=== PATIENT | male | born 1975 | race Caucasian/White ===

== ENCOUNTER 2017-09-25 17:17 | Outpatient (CLI) | payer OTHER, MEDICAID ==
--- NOTE | 2017-09-26 09:03 | XRAY Report ---
TWO VIEW CHEST: 09/25/2017 CLINICAL INDICATION: Pneumonia. FINDINGS: Frontal and lateral views of the chest demonstrate a normal cardiac silhouette. There is patchy lingular and left lower lobe airspace disease present. No effusion or pneumothorax is seen. IMPRESSION: PATCHY LEFT-SIDED INFILTRATES. TD: 09/26/2017 08:55
== END 2017-09-25 17:18 | disposition home or self-care (01) ==
LOC: DI 17:17
PROVIDERS: ATTEND Physician Assistant Medical
DX: J18.9 Pneumonia, unspecified organism (principal)
CPT/HCPCS: 71046

== ENCOUNTER 2017-10-08 17:18 | Outpatient (CLI) | payer MEDICAID ==
--- NOTE | 2017-10-09 08:00 | XRAY Report ---
EXAM: CHEST RADIOGRAPHY EXAM DATE: 10/08/2017 06:05 PM. CLINICAL HISTORY: PNEUMONIA. COMPARISON: 09/25/2017. TECHNIQUE: 2 views. FINDINGS: Lungs/Pleura: Decreasing infiltrates left lower lobe. Elevated right hemidiaphragm.. No pleural effus ion. No pneumothorax. Normal volumes. Mediastinum: Heart and mediastinal contours are unremarkable. Other: None. IMPRESSION: Decreasing left lower lobe infiltrates [facility] Referring Provider Line: [phone] SITE ID: [id number]
== END 2017-10-08 17:19 | disposition home or self-care (01) ==
LOC: LAB 17:18 → DI 17:19
PROVIDERS: ATTEND Physician Assistant Medical
DX: J18.9 Pneumonia, unspecified organism (principal)
CPT/HCPCS: 71046

== ENCOUNTER 2019-06-18 02:59 | Emergency (ER) | payer MEDICAID, OTHER ==
--- NOTE | 2019-06-18 03:05 | ED Physician Documentation ---
History of Present Illness - Stated complaint Stated Complaint: ABD PX - History obtained from History obtained from: Patient (the patient is a 43 Y/O M who p/w a 2 day hx of flank and abd pain that feels similar to his previous kidney stone for which he received ESWL by urology. He reports that he is unable to urinate and he feels the need to and now is c/o of severe suprapubic pain and previously had some flank pain.) Review of Systems Constitutional: reports: Reviewed and negative Eyes: reports: Reviewed and negative Ears: reports: Reviewed and negative Nose: reports: Reviewed and negative Throat: reports: Reviewed and negative Cardiac: reports: Reviewed and negative Respiratory: reports: Reviewed and negative GI: reports: Reviewed and negative : reports: Hesitancy, Unable to Void, Other (flank pain) Skin: reports: Reviewed and negative Musculoskeletal: reports: Reviewed and negative Neurologic: reports: Reviewed and negative Psychiatric: reports: Reviewed and negative Endocrine: reports: Reviewed and negative Immunocompromised: reports: Reviewed and negative PD PAST MEDICAL HISTORY - Present Medications Home Medications: Ambulatory Orders Medication Instructions Recorded Confirmed Hydrocodone/Acetaminophen [[place] 1 each PO Q6HR PRN #10 tablet 06/18/19 5-325 Tablet] Ondansetron Odt [Zofran] 4 mg TL Q6H PRN #10 tablet 06/18/19 Tamsulosin HCl [Flomax] 0.4 mg PO DAILY #7 capsule 06/18/19 - Allergies Allergies/Adverse Reactions: Allergies Allergy/AdvReac Type Severity Reaction Status Date / Time Penicillins Allergy Unknown Verified 06/18/19 03:20 PD ED PE NORMAL - Vitals Vital signs reviewed: Yes - General General: Alert and oriented X 3, No acute distress, Well developed/nourished - HEENT HEENT: Atraumatic, PERRL, Pharynx benign - Neck Neck: Supple, no meningeal sign - Cardiac Cardiac: RRR, No murmur - Respiratory Respiratory: No respiratory distress, Clear bilaterally - Abdomen Abdomen: Normal bowel sounds, Soft, Non distended, Other (tenderness over right flank on exam and suprapubic region) - Derm Derm: Warm and dry - Extremities Extremities: No deformity - Neuro Neuro: crayon painter 2-12 intact, No motor deficit, No sensory deficit, Normal speech - Psych Psych: Normal mood, Normal affect Results - Vitals Vitals: Vital Signs - 24 hr 06/18/19 06/18/19 03:03 05:41 Temperature 36.7 C Heart Rate 74 88 Respiratory 18 16 Rate Blood Pressure 126/97 H O2 Saturation 98 100 - Labs Labs: Laboratory Tests 06/18/19 06/18/19 06/18/19 03:15 03:15 03:15 WBC 7.8 RBC 4.79 Hgb 15.1 Hct 44.6 MCV 93.1 MCH 31.5 H MCHC 33.9 RDW 12.3 Plt Count 278 MPV 8.8 Neut # (Auto) 4.4 Lymph # (Auto) 2.7 Yell # (Auto) 0.6 Eos # (Auto) 0.0 Baso # (Auto) 0.0 Absolute Nucleated RBC 0.00 Nucleated RBC % 0.0 PT 11.1 INR 1.0 APTT 34.4 H Sodium 138 Potassium 4.2 Chloride 103 Carbon Dioxide 24 Anion Gap 11.0 BUN 19 Creatinine 0.9 Estimated GFR (MDRD) 92 Glucose 125 H Calcium 9.4 Total Bilirubin 0.6 AST 18 ALT 19 Alkaline Phosphatase 49 Total Creatine Kinase 73 Total Protein 7.4 Albumin 4.1 Globulin 3.3 Albumin/Globulin Ratio 1.2 Lipase 29 Urine Color Urine Clarity Urine pH Ur Specific [place] Urine Protein Urine Glucose (UA) Urine Ketones Urine Occult Blood Urine Nitrite Urine Bilirubin Urine Urobilinogen Ur Leukocyte Esterase Urine RBC Urine WBC Ur Squamous Epith Cells Urine Bacteria Ur Microscopic Review Urine Culture Comments 06/18/19 04:45 WBC RBC Hgb Hct MCV MCH MCHC RDW Plt Count MPV Neut # (Auto) Lymph # (Auto) Yell # (Auto) Eos # (Auto) Baso # (Auto) Absolute Nucleated RBC Nucleated RBC % PT INR APTT Sodium Potassium Chloride Carbon Dioxide Anion Gap BUN Creatinine Estimated GFR (MDRD) Glucose Calcium Total Bilirubin AST ALT Alkaline Phosphatase Total Creatine Kinase Total Protein Albumin Globulin Albumin/Globulin Ratio Lipase Urine Color YELLOW Urine Clarity CLEAR Urine pH 5.5 Ur Specific [place] >=1.030 H Urine Protein NEGATIVE Urine Glucose (UA) NEGATIVE Urine Ketones NEGATIVE Urine Occult Blood MODERATE H Urine Nitrite NEGATIVE Urine Bilirubin NEGATIVE Urine Urobilinogen 0.2 (NORMAL) Ur Leukocyte Esterase NEGATIVE Urine RBC 6-10 H Urine WBC 0-3 Ur Squamous Epith Cells NONE SEEN Urine Bacteria None Seen Ur Microscopic Review INDICATED Urine Culture Comments NOT INDICATED PD MEDICAL DECISION MAKING - ED course Complexity details: re-evaluated patient (patient able to urinate, pain under control, no fever, no elevated wbc. will dc home with close f/u w urology.), other (hx and pe are consistent w nephrolithiasis) - Consults Consults: Consulted (name) (spoke with dr. soraida simmons urologist who agreed to see as outpatient and recommends dc home.) Departure - Departure Disposition: Home, Self Care Clinical Impression: Kidney stone on left side Condition: Good Instructions: Kidney Stones Follow-Up: Soraida Simmons MD [Physician No Access] - 06/18/19 Prescriptions: Hydrocodone/Acetaminophen [[place] 5-325 Tablet] 1 each PO Q6HR PRN #10 tablet PRN Reason: Pain Ondansetron Odt [Zofran] 4 mg TL Q6H PRN #10 tablet PRN Reason: Nausea / Vomiting Tamsulosin HCl [Flomax] 0.4 mg PO DAILY #7 capsule Comments: call dr soraida simmons to schedule follow up at [phone] to schedule follow up. Discharge Date/Time: 06/18/19 05:41
[2019-06-18 03:08] VITALS: BP 126/97
[2019-06-18] MEDS ORDERED: KETOROLAC 30 MG/ML VIAL IVP STA (03:13)
[2019-06-18] MEDS ORDERED: HYDROmorphone 2 MG/ML VIAL IVP STA (03:13)
[2019-06-18] MEDS ORDERED: SODIUM CHLORIDE 0.9% 1,000 ML IV ONE ×2 (03:13→04:13)
[2019-06-18] MEDS ORDERED: ONDANSETRON 4 MG/2 ML VIAL IVP STA (03:13)
[2019-06-18 03:26] LABS: BASOPHILS % (AUTO) 0.4 %; EOSINOPHILS % (AUTO) 0.5 %; HGB - HEMOGLOBIN 15.1 g/dL (14.0-18.0); LYMPHOCYTES # (AUTO) 2.7 10^3/uL (1.5-3.5); LYMPHOCYTES % (AUTO) 34.1 %; MEAN CORPUSCULAR HEMOGLOBIN 31.5 pg (27.0-31.0); MEAN CORPUSCULAR HGB CONC 33.9 g/dL (32.0-36.0); MEAN CORPUSCULAR VOLUME 93.1 fL (80.0-94.0); MEAN PLATELET VOLUME 8.8 fL (7.4-11.4); MONOCYTES # (AUTO) 0.6 10^3/uL (0.0-1.0); MONOCYTES % (AUTO) 8.1 %; NEUTROPHILS # (AUTO) 4.4 10^3/uL (1.5-6.6); NEUTROPHILS % (AUTO) 56.5 %; PLT - PLATELET COUNT 278 10^3/uL (130-450); RED BLOOD COUNT 4.79 10^6/uL (4.70-6.10); RED CELL DISTRIBUTION WIDTH 12.3 % (12.0-15.0); WHITE BLOOD COUNT 7.8 x10^3/uL (4.8-10.8)
[2019-06-18 03:33] LABS: PT - PROTHROMBIN TIME 11.1 secs (9.9-12.6)
[2019-06-18 03:38] LABS: ALBUMIN 4.1 g/dL (3.2-5.5); ALBUMIN/GLOBULIN RATIO 1.2 (1.0-2.2); BILIRUBIN,TOTAL 0.6 mg/dL (0.2-1.0); CALCIUM 9.4 mg/dL (8.5-10.3); CREATININE 0.9 mg/dL (0.6-1.2); TOTAL PROTEIN 7.4 g/dL (6.7-8.2)
[2019-06-18 03:40] LABS: PARTIAL THROMBOPLASTIN TIME 34.4 secs (24.9-33.3)
--- NOTE | 2019-06-18 04:15 | CT Report ---
Reason: kidney stone Procedure Date: 06/18/2019 Accession Number: [id number] / [id number] Procedure: CT - Abdomen/Pelvis WO CPT Code: Final Report FULL RESULT: EXAM: CT ABDOMEN AND PELVIS (CT KUB) EXAM DATE: 06/18/2019 03:56 AM. CLINICAL HISTORY: Kidney stone. COMPARISONS: None. TECHNIQUE: Routine axial helical CT imaging was performed through the abdomen and pelvis without IV contrast. Reconstructions: Coronal and sagittal. In accordance with CT protocol optimization, one or more of the following dose reduction techniques were utilized for this exam: automated exposure control, adjustment of mA and/or KV based on patient size, or use of iterative reconstructive technique. FINDINGS: Lung Bases: Unremarkable. Right Kidney/Ureter: Right nephrolithiasis, the largest calculus measuring 4 mm. No hydronephrosis or ureterolithiasis. Left Kidney/Ureter: Left hydronephrosis and perinephric stranding. 7 x 5 mm calculus in the proximal left ureter, at the level of the L2 vertebral body. 1 mm calculus in the left lower pole collecting system. Other Solid Organs: Noncontrast images of the solid organs are grossly unremarkable. Gallbladder/Bile Ducts: Unremarkable. Peritoneal Cavity: Colonic diverticulosis, without CT evidence of diverticulitis. No obstruction or perforation. Normal appendix. Pelvic Organs: No bladder stones or wall thickening. Noncontrast images of the visualized pelvic organs are unremarkable. Vasculature: Unremarkable. Other: None. IMPRESSION: 7 x 5 mm calculus in the proximal left ureter, producing left hydronephrosis. Nephrolithiasis. [facility]
[2019-06-18 04:55] LABS: BILIRUBIN,URINE NEGATIVE (NEGATIVE); GLUCOSE, URINE (UA) NEGATIVE (NEGATIVE); KETONES,URINE (UA) NEGATIVE (NEGATIVE); LEUKOCYTE ESTERASE, URINE NEGATIVE (NEGATIVE); NITRITE,URINE NEGATIVE (NEGATIVE); OCCULT BLOOD,URINE MODERATE (NEGATIVE); PH,URINE 5.5 PH (5.0-7.5); PROTEIN,URINE NEGATIVE (NEGATIVE); UROBILINOGEN,URINE 0.2 (NORMAL) E.U./dL (NORMAL)
[2019-06-18 04:56] LABS: CLARITY,URINE CLEAR (CLEAR)
[2019-06-18 05:00] LABS: BACTERIA,URINE None Seen /HPF (None Seen); SQUAMOUS EPITHELIAL CELL,UR NONE SEEN (<= Few)
== END 2019-06-18 05:41 | disposition home or self-care (01) ==
LOC: ED 02:59
DX: N13.2 Hydronephrosis with renal and ureteral calculous obstruction (principal)
CPT/HCPCS: 36415; 74176; 80053; 81001; 82550; 83690; 85025; 85610; 85730; 96361; 96374; 96375; 99283; 99284; J1170; 81003; 87086

== ENCOUNTER 2019-07-03 17:30 | Outpatient (CLI) | payer OTHER ==
--- NOTE | 2019-07-04 09:57 | XRAY Report ---
Reason: URETERAL CALCULUS,RENAL CALCULUS Procedure Date: 07/03/2019 Accession Number: [id number] / [id number] Procedure: XR - Abdomen 1 View X-Ray CPT Code: 63514 Final Report FULL RESULT: EXAM: ABDOMEN RADIOGRAPHY EXAM DATE: 07/03/2019 07:35 PM. CLINICAL HISTORY: Ureteral calculus, renal calculus. COMPARISON: ABDOMEN/PELVIS W/O 06/18/2019 3:53 AM. TECHNIQUE: 1 view. FINDINGS: There is an oblong 4 mm radiopaque calculus at the mid pole the right kidney, correlating to a nephrolith seen on comparison CT. The left renal shadow is partially obscured by overlying bowel gas and stool. No radiopaque calculi detected at the left kidney or the proximal left ureter. On current view of the pelvis, there is an oblong 7 mm subtle calcific structure just medial to a round phlebolith. This may represent forward passage of the left nephrolith on comparison CT or be within bowel. No additional urinary collecting system calculi identified. IMPRESSION: Right nephrolith is visible on the current study and is stable in position. Previously seen proximal left ureteral calculus may have progressed into the lower pelvis near the UVJ on the current study. [facility]
== END 2019-07-03 17:31 | disposition home or self-care (01) ==
LOC: DI 17:30
PROVIDERS: ATTEND Urology
DX: N20.2 Calculus of kidney with calculus of ureter (principal)
CPT/HCPCS: 74018

== ENCOUNTER 2019-07-18 09:36 | Outpatient (CLI) | payer OTHER ==
--- NOTE | 2019-07-18 14:07 | XRAY Report ---
Reason: URETERAL CALCULUS Procedure Date: 07/18/2019 Accession Number: [id number] / [id number] Procedure: XRN - Abdomen 1 View X-Ray CPT Code: 44858 Final Report FULL RESULT: EXAM: ABDOMEN RADIOGRAPHY EXAM DATE: 07/18/2019 10:01 AM. CLINICAL HISTORY: Ureteral calculus. COMPARISON: ABDOMEN 1 VIEW 07/03/2019 6:08 PM ABDOMEN/PELVIS W/O 06/18/2019 3:53 AM. TECHNIQUE: 1 view. FINDINGS: Bowel Gas Pattern: Within normal limits. No dilated loops. Other: The previously demonstrated right renal calculus is now not definitely visualized. Again demonstrated are 4 calcifications within the left pelvis, without significant change from the radiograph on 07/03/2019. The 3 smaller calculi correspond well in size and location to phleboliths demonstrated on the CT exam. A 7-8 mm calculus is most consistent with distal progression of the calculus previously demonstrated at the left UPJ on the CT exam. IMPRESSION: 7-8 mm left pelvic calculus is most consistent with distal ureteral calculus and is without significant change from 07/03/2019. [facility]
== END 2019-07-18 09:37 | disposition home or self-care (01) ==
LOC: DI.N 09:36
PROVIDERS: ATTEND Urology
DX: N20.1 Calculus of ureter (principal)
CPT/HCPCS: 74018

== ENCOUNTER 2022-03-30 11:46 | Outpatient (CLI) | payer OTHER ==
--- NOTE | 2022-03-30 17:20 | XRAY Report ---
PROCEDURE: Toe(s) LT INDICATIONS: CONTUSION OF LEFT LESSER TOE WITHOUT DAMAGE TONAIL TECHNIQUE: 3 views of the fifth toe(s) acquired. COMPARISON: None FINDINGS: Bones: Oblique intra-articular fracture noted on the base of the fifth distal phalanx without displac ement. Normal bone mineralization. The osseous structures unremarkable Soft tissues: No suspicious soft tissue densities. IMPRESSION: Oblique intra-articular fracture, base of the fifth distal phalanx Reviewed by: Markos Long MD on 03/30/2022 4:19 PM [place] Approved by: Markos Long MD on 03/30/2022 4:19 PM [place] Station ID: [id number]
== END 2022-03-30 11:47 | disposition home or self-care (01) ==
LOC: DI 11:46
PROVIDERS: ATTEND Family Medicine
DX: S90.122A Contusion of left lesser toe(s) without damage to nail, initial encounter (principal); S92.535A Nondisplaced fracture of distal phalanx of left lesser toe(s), initial encounter for closed fracture
CPT/HCPCS: 73660

== ENCOUNTER 2023-04-11 16:19 | Emergency (ER) | payer OTHER ==
[2023-04-11] MEDS ORDERED: KETOROLAC 30 MG/ML VIAL IVP STA (17:28)
[2023-04-11] MEDS ORDERED: ONDANSETRON 4 MG/2 ML VIAL IVP STA (17:28)
--- NOTE | 2023-04-11 17:31 | ED Physician Documentation ---
History of Present Illness - Stated complaint Stated Complaint: /KIDNEY PX - Chief complaint Chief Complaint: Abd Pain - Additonal information Additional information: 47-year-old male presents emergency department for evaluation of acute left lower quadrant abdominal pain. States that this is reminiscent of previous ureter stones. He has required urinary stenting and lithotripsy in the past but not since 2018. He has had no fevers. Some nausea no vomiting. No history of previous colonoscopy but does endorse constipation. No melena or hematochezia. Appears very uncomfortable in the room guarding his abdomen. Review of Systems Constitutional: denies: Fever Cardiac: reports: Reviewed and negative Respiratory: reports: Reviewed and negative GI: reports: Abdominal Pain, Nausea. denies: Vomiting : denies: Dysuria, Frequency Skin: reports: Reviewed and negative Musculoskeletal: reports: Reviewed and negative PD PAST MEDICAL HISTORY - Past Medical History Past Medical History: Yes Cardiovascular: None Respiratory: None Neuro: None Endocrine/Autoimmune: None GI: None : Kidney stones HEENT: None Psych: None Musculoskeletal: None Derm: None - Past Surgical History Past Surgical History: Yes - Present Medications Home Medications: Ambulatory Orders Medication Instructions Recorded Confirmed Tamsulosin HCl [Flomax] 0.4 mg PO DAILY #7 capsule 06/18/19 Tamsulosin HCl [Flomax] 0.4 mg PO DAILY #30 cap 04/11/23 oxyCODONE [Roxicodone] 5 mg PO TID PRN #15 tablet 04/11/23 - Allergies Allergies/Adverse Reactions: Allergies Allergy/AdvReac Type Severity Reaction Status Date / Time Penicillins Allergy Unknown Verified 04/11/23 16:26 - Social History Does the pt smoke?: No Smoking Status: Never smoker Does the pt drink ETOH?: No Does the pt have substance abuse?: No - Immunizations Immunizations are current?: Yes - POLST Patient has POLST: No PD ED PE NORMAL - General General: Alert and oriented X 3. No: No acute distress (Uncomfortable in pain and guarding his abdomen) - HEENT HEENT: Atraumatic - Cardiac Cardiac: RRR, No murmur - Respiratory Respiratory: No respiratory distress, Clear bilaterally - Abdomen Abdomen: Normal bowel sounds, Soft. No: Non tender (Focal tenderness on the left lower quadrant without CVA tenderness. Some guarding.) - Back Back: No CVA TTP - Derm Derm: Normal color, Warm and dry - Extremities Extremities: No deformity - Neuro Neuro: Alert and oriented X 3 Eye Opening: Spontaneous Motor: Obeys Commands Verbal: Oriented GCS Score: 15 Results - Vitals Vitals: Vital Signs - 24 hr 04/11/23 04/11/23 04/11/23 16:26 16:59 19:10 Temperature 36.5 C Heart Rate 80 69 70 Respiratory 20 20 17 Rate Blood Pressure 134/94 H 190/72 H 125/85 H O2 Saturation 95 98 98 Oxygen O2 Source Room air - Labs Labs: Laboratory Tests 04/11/23 04/11/23 04/11/23 16:40 16:40 17:32 WBC 10.4 RBC 5.00 Hgb 15.4 Hct 46.0 MCV 92.0 MCH 30.8 MCHC 33.5 RDW 12.7 Plt Count 263 MPV 9.4 Neut # (Auto) 8.6 H Lymph # (Auto) 1.2 L [place] # (Auto) 0.6 Eos # (Auto) 0.0 Baso # (Auto) 0.0 Absolute Nucleated RBC 0.00 Nucleated RBC % 0.0 Sodium 134 L Potassium 4.2 Chloride 101 Carbon Dioxide 26 Anion Gap 7.0 BUN 12 Creatinine 1.0 Estimated GFR (MDRD) 80 L Glucose 92 Calcium 9.9 Total Bilirubin 0.7 AST 18 ALT 18 Alkaline Phosphatase 55 Total Protein 7.3 Albumin 4.8 Globulin 2.5 Albumin/Globulin Ratio 1.9 Lipase 12 Urine Color YELLOW Urine Clarity CLEAR Urine pH 6.0 Ur Specific [place] 1.025 Urine Protein NEGATIVE Urine Glucose (UA) NEGATIVE Urine Ketones >=80 H Urine Occult Blood SMALL H Urine Nitrite NEGATIVE Urine Bilirubin NEGATIVE Urine Urobilinogen 0.2 (NORMAL) Ur Leukocyte Esterase NEGATIVE Urine RBC 6-10 H Urine WBC 0-3 Ur Squamous Epith Cells NONE SEEN Urine Bacteria None Seen Ur Microscopic Review INDICATED Urine Culture Comments NOT INDICATED - Rads (name of study) CT abd Relevant Findings:: Final report received (Obstructing 7 mm stone in the distal left ureter resulting in moderate hydronephrosis, hydroureter delayed left sided nephrogram and perinephric fat stranding. Diverticulosis without diverticulitis) PD Medical Decision Making - ED course Complexity details: reviewed results, re-evaluated patient, d/w patient, d/w advertising sales consultant (Matt) ED course: Absolutely 47-year-old male presents emergency department for evaluation of acute onset left lower abdominal pelvic pain that is reminiscent of previous ureter colic he has had in the past requiring lithotripsy and stenting. Here in the emergency department he presented guarding his left lower abdomen. Some nausea no vomiting. His vital signs were without hypotension or tachycardia. No fevers. CBC electrolytes and urinalysis interpreted by myself showed no acute worrisome abnormalities. Urine shows no signs of infection though there was a small amount of blood noted. CT of the abdomen did show a 7 mm obstructing stone in the distal left ureter with associated hydronephrosis, hydroureter and perinephric fat stranding. In the emergency department the patient was given a single dose of Toradol with good relief of his pain. He did request a dose of oxycodone prior to discharge. I briefly discussed this case with Dr. Brian Gutierrez with urology. Patient is stable for outpatient follow-up. He will be started on Flomax. The usual emergent return precautions were discussed for worsening symptoms. Departure - Departure Disposition: 01 Home, Self Care Clinical Impression: Left ureteral calculus, Hydroureter on left Hydronephrosis Qualifiers: Hydronephrosis type: with ureteral calculous obstruction Qualified Code(s): N13.2 - Hydronephrosis with renal and ureteral calculous obstruction Condition: Stable Instructions: ED Stone Renal W Colic Follow-Up: Brian Gutierrez MD [Provider Admit Priv/Credential] - Carla Beaulieu PA-C [Primary Care Provider] - Prescriptions: Tamsulosin HCl [Flomax] 0.4 mg PO DAILY #30 cap oxyCODONE [Roxicodone] 5 mg PO TID PRN #15 tablet PRN Reason: Pain Comments: You do have a 7 mm stone in your distal left ureter. This is obstructing and causing some swelling of the ureter and kidney behind it. We have given you a first dose of Flomax here in the emergency department you should begin taking it every day until advised to stop by your urologist. This should help you pass the stone. Use the urine strainer when urinating if you do have any stones please save them for further testing. In general for pain I would recommend that you take 600 mg of ibuprofen with food 3 times a day or alternate with 500 mg of Tylenol also 3 times a day. For more severe pain a limited amount of oxycodone has been sent to [facility] in [place]. Use this sparingly, it is addictive, you develop tolerance quite quickly and it will cause constipation. If you go more than 24 hours without a bowel movement please take MiraLAX. Please follow closely with your PCP Carla Beaulieu. You will need a referral to urology. Dr. Brian Gutierrez is seeing patients here at the hospital and should be able to help you manage this. Return to the ER for worsening pain, fevers, uncontrolled vomiting or any other new or worrisome symptoms.. Forms: PCP List
[2023-04-11 17:45] LABS: BILIRUBIN,URINE NEGATIVE (NEGATIVE); GLUCOSE, URINE (UA) NEGATIVE (NEGATIVE); KETONES,URINE (UA) >=80 mg/dL (NEGATIVE); LEUKOCYTE ESTERASE, URINE NEGATIVE (NEGATIVE); NITRITE,URINE NEGATIVE (NEGATIVE); OCCULT BLOOD,URINE SMALL (NEGATIVE); PROTEIN,URINE NEGATIVE (NEGATIVE); UROBILINOGEN,URINE 0.2 (NORMAL) E.U./dL (NORMAL)
[2023-04-11 17:46] LABS: CLARITY,URINE CLEAR (CLEAR)
[2023-04-11 17:54] LABS: BACTERIA,URINE None Seen /HPF (None Seen); SQUAMOUS EPITHELIAL CELL,UR NONE SEEN (<= Few); WBC,URINE 0-3 /HPF (0-3)
[2023-04-11 18:20] LABS: BASOPHILS % (AUTO) 0.3 %; HGB - HEMOGLOBIN 15.4 g/dL (14.0-18.0); LYMPHOCYTES # (AUTO) 1.2 10^3/uL (1.5-3.5); LYMPHOCYTES % (AUTO) 11.3 %; MEAN CORPUSCULAR HEMOGLOBIN 30.8 pg (27.0-31.0); MEAN CORPUSCULAR HGB CONC 33.5 g/dL (32.0-36.0); MEAN PLATELET VOLUME 9.4 fL (7.4-11.4); MONOCYTES # (AUTO) 0.6 10^3/uL (0.0-1.0); MONOCYTES % (AUTO) 5.5 %; NEUTROPHILS # (AUTO) 8.6 10^3/uL (1.5-6.6); NEUTROPHILS % (AUTO) 82.7 %; PLT - PLATELET COUNT 263 10^3/uL (130-450); RED CELL DISTRIBUTION WIDTH 12.7 % (12.0-15.0); WHITE BLOOD COUNT 10.4 x10^3/uL (4.8-10.8)
[2023-04-11 18:29] LABS: ALBUMIN 4.8 g/dL (3.2-5.5); ALBUMIN/GLOBULIN RATIO 1.9 (1.0-2.2); BILIRUBIN,TOTAL 0.7 mg/dL (0.2-1.0); CALCIUM 9.9 mg/dL (8.5-10.3); POTASSIUM 4.2 mmol/L (3.5-4.5); TOTAL PROTEIN 7.3 g/dL (6.4-8.9)
[2023-04-11] MEDS ORDERED: iohexoL-300 100 ML VIAL IVP ONE (18:49)
--- NOTE | 2023-04-11 19:09 | CT Report ---
PROCEDURE: ABDOMEN/PELVIS W INDICATIONS: LLQ pain; ? obstructing stone vs divertiv CONTRAST: 100mL Omni 300 TECHNIQUE: After the administration of intravenous contrast, 5 mm thick sections acquired from the diaphragms to the symphysis. 5 mm thick coronal and sagittal reformats were acquired. For radiation dose reducti on, the following was used: automated exposure control, adjustment of mA and/or kV according to shelbi ent size. COMPARISON: CT 06/18/2019 FINDINGS: Image quality: Excellent. Lung bases and heart: Stable 2 mm solid nodule in the right lower lobe compared with 2019, statistica lly benign.. Liver: Subcentimeter hypoattenuating lesion in segment 7, too small to characterize by CT. Gallbladder and biliary tree: No radiopaque stones or wall thickening. No biliary dilation. Spleen: No splenomegaly. Pancreas: No pancreatic ductal dilation. Adrenals: No adrenal nodule. Kidneys and ureters: Obstructing 7 mm stone in the distal left ureter (561 Hounsfield unit). This res ults in moderate upstream hydronephrosis and hydroureter, delayed left-sided nephrogram and perinephr ic fat stranding. Small burden of bilateral, punctate nephrolithiasis. Bowel and peritoneum: No bowel distension. No pathologic free fluid. Diverticulosis without evidence of diverticulitis. Normal appendix. Lymph nodes: No central or retroperitoneal adenopathy. Vessels: No infrarenal aortic aneurysm. PELVIS Reproductive organs: Unremarkable. Bladder: No abnormal wall thickening, accounting for underdistension. Pelvic lymph nodes: No pelvic adenopathy by size criteria. Bones: No aggressive osseous abnormality. Other: No significant ventral or inguinal hernia. IMPRESSION: Obstructing 7 mm stone in the distal left ureter, resulting in moderate upstream hydronephrosis, hydr oureter, delayed left-sided nephrogram and perinephric fat stranding. Colonic diverticulosis without evidence of diverticulitis. Reviewed by: Mark Sadler on 04/11/2023 7:08 PM PST Approved by: Mark Sadler on 04/11/2023 7:08 PM PST Station ID: [id number]
[2023-04-11] MEDS ORDERED: TAMSULOSIN 0.4 MG CAPSULE PO STA (19:13)
[2023-04-11] MEDS ORDERED: oxyCODONE 5 MG TABLET PO STA (19:26)
[2023-04-11 20:46] VITALS: BP 103/83; O2SAT 100
== END 2023-04-11 20:44 | disposition home or self-care (01) ==
LOC: ED 16:19
DX: N13.2 Hydronephrosis with renal and ureteral calculous obstruction (principal)
CPT/HCPCS: 36415; 74177; 80053; 81001; 83690; 85025; 96374; 96375; 99284; A9270; Q9967; 81003; 87086

== ENCOUNTER 2023-04-19 11:30 | Outpatient (CLI) | payer OTHER ==
--- NOTE | 2023-04-19 19:56 | XRAY Report ---
PROCEDURE: Abdomen 1 View (KUB) INDICATIONS: NEPHROLITHIASIS TECHNIQUE: Single view the abdomen was obtained COMPARISON: None. FINDINGS: Both renal shadows are appreciated. No radiographic evidence of nephrolithiasis. Underlying osseous s tructures unremarkable. IMPRESSION: No radiographic evidence of nephrolithiasis Reviewed by: Markos Long MD on 04/19/2023 6:54 PM AKST Approved by: Markos Long MD on 04/19/2023 6:54 PM AKST Station ID: [id number]
== END 2023-04-19 23:59 | disposition home or self-care (01) ==
LOC: DI.WOS 11:30
PROVIDERS: ATTEND Urology
DX: N20.0 Calculus of kidney (principal)

== ENCOUNTER 2023-04-30 10:58 | Day surgery (SDC) | payer OTHER ==
[~2023-04-30 10:58] MED LIST: ceFAZolin 2 GM VIAL ONE
[2023-04-30] MEDS ORDERED: LACTATED RINGERS 1,000 ML IV ONE ×2 (11:15→13:25)
--- NOTE | 2023-04-30 11:50 | ANESTHESIA ---
Pre-Anesthesia VS, & Labs - Diagnosis L kidney stone - Procedure L laser lithotripsy, stent placement Vital Signs: Temp Pulse Resp BP Pulse Ox O2 Flow Rate 36.2 C L 83 12 123/85 H 97 04/30/23 11:16 04/30/23 11:16 04/30/23 11:16 04/30/23 11:16 04/30/23 11:16 Height: 6 ft Weight (kg): 121 kg Body Mass Index: 36.1 BMI Classification: Obese - NPO >8 hours - Lab Results Lab results reviewed: Yes Home Medications and Allergies Allergies/Adverse Reactions: Allergies Allergy/AdvReac Type Severity Reaction Status Date / Time Penicillins Allergy Hives Verified 04/30/23 11:20 Anes History & Medical History - Anesthetic History Anesthesia Complications: reports: No previous complications Family history of Anesthesia Complications: Denies Family history of Malignant Hyperthermia: Denies - Medical History Cardiovascular: reports: None Pulmonary: reports: None Gastrointestinal: reports: None Urinary: reports: Kidney stones Neuro: reports: None Musculoskeletal: reports: None Endocrine/Autoimmune: reports: None Blood Disorders: reports: None Skin: reports: None Smoking Status: Never smoker Psychosocial: reports: Alcohol (rare) History of Cancer?: No - Surgical History Urologic: reports: Kidney stents, Ureterolithotomy (stones) Exam General: Alert, Oriented x3 Mouth Openin Fingerbreadth Neck Mobility: Normal Mallampati classification: II Thyromental Distance: 4-6 cm Respiratory: Lungs clear, Normal breath sounds, No respiratory distress Cardiovascular: Regular rate Neurological: Normal speech Mental/Cognitive Status: Alert/Oriented X3, Normal for patient Cognitive Status: Within normal limits Plan Anesthesia Type: General Consent for Procedure(s) Verified and Reviewed: Yes Code Status: Attempt Resuscitation ASA classification: 2-Mild systemic disease Is this case an emergency?: No
[2023-04-30] MEDS ORDERED: iohexoL-240 10 ML VIAL IVP ONE ×2 (12:12→13:04)
[2023-04-30] MEDS ORDERED: LIDOCAINE 2% URO-JET 5 ML SYRINGE UR ONE ×3 (12:13→13:03)
[2023-04-30] MEDS ORDERED: PROPOFOL 200 MG/20 ML VIAL IVP ONE (12:25)
[2023-04-30] MEDS ORDERED: fentaNYL 100 MCG/2 ML VIAL ONE (12:25)
[2023-04-30] MEDS ORDERED: MIDAZOLAM 2 MG/2 ML VIAL ONE (12:36)
[2023-04-30] MEDS ORDERED: KETOROLAC 30 MG/ML VIAL ONE (13:08)
[2023-04-30] MEDS ORDERED: ONDANSETRON 4 MG/2 ML VIAL ONE (13:08)
[2023-04-30] MEDS ORDERED: HYDROcod/ACETAM 5/325 MG TABLET PO PRN (13:29)
[2023-04-30] MEDS ORDERED: ONDANSETRON 4 MG/2 ML VIAL IVP PRN (13:29)
--- NOTE | 2023-04-30 13:35 | Discharge Plan ---
Discharge Plan Problem Reviewed?: Yes Disposition: Home, Self Care Condition: Good Prescriptions: Ciprofloxacin HCl [Cipro] 500 mg PO ONCE #1 tablet Docusate Sodium 100Mg Capsule [Colace 100Mg Capsule] 100 mg PO DAILY #7 cap HYDROcod/ACETAM 5/325 [[place] 5/325] 1 tab PO Q4H PRN #10 tablet PRN Reason: Pain Diet: Regular Activity Restrictions: No Restrictions Shower Restrictions: No Driving Restrictions: No Instruction Topics: Stents Ureteral Additional Instructions or Follow Up instructions: You will be contacted for follow-up in 1 week's time for cystoscopy and stent removal in the office. Take antibiotic as prescribed before hand No Smoking: If you smoke, Please STOP! Call for help.
--- NOTE | 2023-04-30 13:37 | OPERATIVE REPORT ---
Operative Report - General Procedure Date: 04/30/23 Planned Procedure: Cystoscopy, left ureteroscopy, laser lithotripsy, stent Pre-Op Diagnosis: Left ureteral stone Procedure Performed: Cystoscopy, left ureteroscopy, laser lithotripsy, stent Post Op Diagnosis: same - Procedure Note Primary Surgeon: Matt Anesthesia Provider: JOSÉ LUIS Berger Anesthesia Technique: General LMA Pathology: left ureteral stone Findings: Left moderately radioopaque distal 7mm ureteral stone Complications: none - Other Other Information/Narrative: After informed consent was obtained the patient was brought to the OR and laid in the supine position. The patient was anesthetized per anesthesia protocols. He was then prepped and draped in usual sterile fashion and placed in the dorsolithotomy position. A formal timeout was performed reconfirming the patient, procedure and laterality. Fluoroscopy showed a radiopaque medium sized distal left ureteral stone. A 22 Iranian scope was advanced easily into urinary bladder bladder inspected and full there were no masses lesions or other concerns. A sensor wire was placed up the left ureteral orifice up into the kidney. A short semirigid ureteroscope was advanced into the distal ureter where we could see the 7 mm yellow stone in place. Using a 200 m laser fiber we fragmented the stone into small pieces all the pieces were evacuated easily into the bladder. The ureter was then cleared again with the ureteroscope. A 6 Iranian 26 cm double-J ureteral stent was placed with good curling noted in the kidney and good curling noted in the bladder. The bladder was emptied and some stone fragments were sent for analysis. A Uro-Jet was placed. This concluded the procedure the patient tolerated the procedure well was brought to PACU without further incident. He will follow-up in 1 week's time for cystoscopy and stent removal.
[2023-04-30 13:42] VITALS: O2SAT 96
[2023-04-30 14:02] VITALS: BP 101/72
--- NOTE | 2023-04-30 14:10 | ANESTHESIA POST OP EVALUATION ---
Anesthesia Post Eval - Post Anesthesia Eval Vitals: Last Vital Signs Temp 36.4 C L 04/30/23 13:58 Pulse 75 04/30/23 13:58 Resp 16 04/30/23 13:58 BP 101/72 04/30/23 13:58 Pulse Ox 96 04/30/23 13:58 O2 Flow Rate CV Function Including HR & BP: Stable Pain Control: Satisfactory Nausea & Vomiting: Negative Mental Status: Baseline Respiratory Status: Airway Patent Hydration Status: Satisfactory Anesthesia Complications: None
--- NOTE | 2023-04-30 14:24 | XRAY Report ---
PROCEDURE: OR C-Arm Procedure INDICATIONS: STENT PLACEMENT FLUORO TIME: 000.0 TECHNIQUE: 5 intraoperative fluoroscopic images COMPARISON: None. FINDINGS: 5 intraoperative fluoroscopic images of ureteral stent placement are provided for nondiagnostic inter pretation. Please see operative report for details. Fluoroscopy time: Please see procedural report Air kerma: 1.1 mGy IMPRESSION: 5 intraoperative fluoroscopic images of ureteral stent placement are provided for nondiagnostic inter pretation. Please see operative report for details. Reviewed by: José Villafuerte MD on 04/30/2023 2:22 PM PST Approved by: José Villafuerte MD on 04/30/2023 2:22 PM PST Station ID: [id number]
== END 2023-04-30 10:59 | disposition home or self-care (01) ==
LOC: SDS 10:58
PROVIDERS: ATTEND Urology
DX: N20.1 Calculus of ureter (principal); E66.9 Obesity, unspecified; Z68.36 Body mass index [BMI] 36.0-36.9, adult
CPT/HCPCS: 52356; 82365; C1758; C2617; J7120; Q9966